=== PATIENT | female | born 2000 | race Caucasian/White ===

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

== ENCOUNTER 2021-11-08 14:00 | Emergency (ER) | payer OTHER ==
[~2021-11-08] VITALS: Ht 165.1 cm; Wt 86.2 kg
[~2021-11-08 14:00] MED LIST: FERR-212 PO; MECL-303 PO; MEDR10TA PO; PREN-380 PO; [UNRECOGNIZED DRUG - CODE] PO
[2021-11-08 14:30] VITALS: BP 127/77
--- NOTE | 2021-11-08 14:37 | NUR ---
TENT 3
--- NOTE | 2021-11-08 14:38 | NUR ---
BIB SELF C/O COUGH, FEVER, 8/10 HANDY, SORE THROAT, BODY ACHE X 3 DAYS.
[2021-11-08] MEDS ORDERED: BENZ1LOZ98 PO (15:21)
[2021-11-08] MEDS ORDERED: PROM118S5 PO (15:21)
[2021-11-08] MEDS ORDERED: IBUP-2213 PO (15:21)
--- NOTE | 2021-11-08 15:30 | NUR ---
COVID PCR SWAB DONE.
--- NOTE | 2021-11-08 15:42 | NUR ---
Patient discharged with v/s stable. Written and verbal after care instructions given and explained. Patient alert, oriented and verbalized understanding of instructions. Ambulatory with steady gait. All questions addressed prior to discharge. ID band removed. Patient advised to follow up with PMD. Rx of LOZENGE, IBUPROFEN & PROMETHAZINE given. Patient educated on indication of medication including possible reaction and side effects. Opportunity to ask questions provided and answered.
[2021-11-08 15:43] VITALS: BP 124/70
== END 2021-11-08 15:42 | disposition home or self-care (01) ==
LOC: MED 14:00
DX: U07.1 COVID-19 (principal)
CPT/HCPCS: 99283; U0003

== ENCOUNTER 2023-08-02 23:41 | Emergency (ER) | payer OTHER ==
[~2023-08-02] VITALS: Ht 165.1 cm; Wt 90.3 kg
[~2023-08-02 23:41] MED LIST changes: +BENZ-300 PO; +IBUP-2213 PO; +PROM118S5 PO
[2023-08-03 00:05] VITALS: BP 113/65; PULSE 82; RESP 16; TEMP 97.4; O2SAT 99
[2023-08-03] MEDS ORDERED: ALBUTEROL SULFATE/IPRATROPIU 3 ML SOL IH ONE ×2 (01:05→02:15)
[2023-08-03 01:22] VITALS: PULSE 84; RESP 18; O2SAT 100
[2023-08-03] MEDS ORDERED: predniSONE 20 MG TAB PO ONE ×2 (01:50→01:55)
[2023-08-03 02:20] VITALS: PULSE 88; RESP 16; O2SAT 100
[2023-08-03] MEDS ORDERED: PRED20TA5 PO (02:43)
[2023-08-03] MEDS ORDERED: ALBU0.0912 INH (02:43)
[2023-08-03 02:48] VITALS: BP 113/65; PULSE 88; RESP 16; TEMP 97.4; O2SAT 100
== END 2023-08-03 02:48 | disposition home or self-care (01) ==
LOC: MED 23:41
DX: J98.01 Acute bronchospasm (principal); Z79.899 Other long term (current) drug therapy; Z20.822 Contact with and (suspected) exposure to COVID-19
CPT/HCPCS: 87426; 94640; 99283; J7512